=== PATIENT | male | born 1970 | race Caucasian/White ===

== ENCOUNTER → 2017-02-14 | Outpatient (CLI) | payer BC ==
--- NOTE | 2017-02-14 16:22 | PCVCIMAG ---
APPROVED REPORT Study performed: 02/14/2017 15:15:39 EXAM: Comprehensive 2D, Doppler, and color-flow Echocardiogram Patient Location: Echo lab Status: routine BSA: 2.41 HR: 81 bpmBP: 126/90 mmHg Rhythm: NSR Other Information Study Quality: Adequate Risk Factors: Cardiac Risk Factors: HTN, FHX of CAD, HLP, Indications Dyspnea Chest Pain Hypertension/HDD 2D Dimensions LVEF(%): 72.80 (>50%) IVSd: 8.35 (7-11mm)LVOT Diam: 22.43 (18-24mm) LVDd: 49.42 mm PWd: 8.66 (7-11mm)Ascending Ao: 28.18 (22-36mm) LVDs: 28.67 (25-40mm) Left Atrium: 39.01 (27-40mm) Aortic Root: 31.26 mm LV Single Plane 4CH: 55.09 % LV Single Plane 2CH: 56.50 %Abreu's LVEF: 55.79 % Biplane EF: 55.4 % Volumes Left Atrial Volume (Systole) Single Plane 4CH: 35.96 mLSingle Plane 2CH: 32.33 mL Biplane LA Volume: 35.00 mLLA ESV Index: 14.00 mL/m2 Aortic Valve AoV Peak Jm.: 1.21 m/s AO Peak Gr.: 5.82 mmHgLVOT Max P.56 mmHg LVOT Max V: 0.94 m/s RADHA Vmax: 3.09 cm2 Mitral Valve E/A Ratio: 1.1 MV Decel. Time: 160.47 ms MV E Max Jm.: 0.56 m/s MV A Jm.: 0.53 m/s IVRT: 107.27 ms TDI E/Lateral E': 6.22E/Medial E': 9.33 Medial E' Jm.: 0.06 m/s Lateral E' Jm.: 0.09 m/s Pulmonary Valve PV Peak Jm.: 0.90 m/sPV Peak Gr.: 3.21 mmHg Pulmonary Vein P Vein S: 0.56 m/sP Vein A: 0.34 m/s P Vein D: 0.34 m/sP Vein A Dur.: 96.9 msec P Vein S/D Ratio: 1.65 Tricuspid Valve TV Vmax: 0.66 m/s Left Ventricle The left ventricle is normal size. There is normal LV segmental wall motion. There is normal left ventricular wall thickness. Left ventricular systolic function is normal. The left ventricular ejection fraction is within the normal range. LVEF is 55-60%. Grade I - abnormal relaxation pattern. Right Ventricle The right ventricle is normal size. The right ventricular systolic function is normal. Atria The left atrium size is normal. The right atrium size is normal. Aortic Valve The aortic valve is normal in structure. No aortic regurgitation is present. There is no aortic valvular stenosis. Mitral Valve The mitral valve is normal in structure. There is no mitral valve regurgitation noted. No evidence of mitral valve stenosis. Tricuspid Valve The tricuspid valve is normal in structure. Unable to assess PA pressure due to minimal regurgitation. Pulmonic Valve The pulmonary valve is normal in structure. There is no pulmonic valvular regurgitation. Great Vessels The aortic root is normal in size. The ascending aorta is normal in size. IVC is normal in size and collapses with >50% inspiration Pericardium There is no pericardial effusion. There is no pleural effusion. <Conclusion> The left ventricle is normal size. Left ventricular systolic function is normal. The right ventricle is normal size. The left atrium size is normal. The aortic valve is normal in structure. The mitral valve is normal in structure. There is no pericardial effusion.
== END | disposition home or self-care (01) ==
LOC: PCVCIMAG 14:45
PROVIDERS: ATTEND Internal Medicine Cardiovascular Disease
DX: I07.1 Rheumatic tricuspid insufficiency (principal); E78.00 Pure hypercholesterolemia, unspecified; I10 Essential (primary) hypertension; J45.909 Unspecified asthma, uncomplicated
CPT/HCPCS: 93005; 93306; G0463